=== PATIENT | female | born 1975 | race Caucasian/White ===

== ENCOUNTER → 2021-07-04 19:39 | Outpatient (CLI) | payer SELFPAY | PROVIDERS: Visit Provider Nurse Practitioner Family | DX: Z20.822 Contact with and (suspected) exposure to COVID-19 (principal) | CPT/HCPCS: C9803; U0003; U0005 ==

== ENCOUNTER 2023-02-10 19:52 | Emergency (ER) | payer BC, SELFPAY ==
[2023-02-10 20:15] VITALS: BP 141/68; PULSE 83; RESP 15; TEMP 36.7; O2SAT 96; BMI 27.6
--- NOTE | 2023-02-10 20:21 | XR_ITS ---
PROCEDURE INFORMATION: Exam: XR Pelvis Exam date and time: 02/10/2023 8:34 PM Age: 48 years old Clinical indication: Pelvic pain; Patient HX: Injured while lifting boxes. TECHNIQUE: Imaging protocol: Radiologic exam of the pelvis. Views: 1 or 2 view. COMPARISON: No relevant prior studies available. FINDINGS: Bones/joints: Unremarkable. No acute fracture. Soft tissues: Unremarkable. IMPRESSION: No acute findings.
--- NOTE | 2023-02-10 20:21 | CT_ITS ---
PROCEDURE INFORMATION: Exam: CT Thoracic Spine Without Contrast Exam date and time: 02/10/2023 8:36 PM Age: 48 years old Clinical indication: Pain in thoracic spine; Without myelpathy or radiculopathy; Additional info: Injury related to lifting TECHNIQUE: Imaging protocol: Computed tomography of the thoracic spine without contrast. Radiation optimization: All CT scans at this facility use at least one of these dose optimization techniques: automated exposure control; mA and/or kV adjustment per patient size (includes targeted exams where dose is matched to clinical indication); or iterative reconstruction. REPORTING DATA: Count of CT and Cardiac NM exams in prior 12 months: This patient has received 0 known CTs and 0 known cardiac nuclear medicine studies in the 12 months prior to the current study. 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 Vertebral bodies are maintained in height and alignment. Moderate loss of intervertebral disc space with degenerative changes at T10 through L2. Soft tissues: Unremarkable. IMPRESSION: 1. 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 2. Vertebral bodies are maintained in height and alignment. 3. Moderate loss of intervertebral disc space with degenerative changes at T10 through L2.
--- NOTE | 2023-02-10 20:21 | CT_ITS ---
PROCEDURE INFORMATION: Exam: CT Cervical Spine Without Contrast Exam date and time: 02/10/2023 8:33 PM Age: 48 years old Clinical indication: Neck pain; Additional info: Injury related to lifting TECHNIQUE: Imaging protocol: Computed tomography of the cervical spine without contrast. Radiation optimization: All CT scans at this facility use at least one of these dose optimization techniques: automated exposure control; mA and/or kV adjustment per patient size (includes targeted exams where dose is matched to clinical indication); or iterative reconstruction. REPORTING DATA: Count of CT and Cardiac NM exams in prior 12 months: This patient has received 0 known CTs and 0 known cardiac nuclear medicine studies in the 12 months prior to the current study. COMPARISON: No relevant prior studies available. FINDINGS: Bones/joints: No acute fracture. Normal alignment. No significant disc bulge or herniation. No severe spinal canal stenosis. No significant neural foraminal narrowing. Lungs: Lung apices are normal. Soft tissues: Unremarkable. IMPRESSION: No acute findings.
--- NOTE | 2023-02-10 20:21 | CT_ITS ---
PROCEDURE INFORMATION: Exam: CT Lumbar Spine Without Contrast Exam date and time: 02/10/2023 8:39 PM Age: 48 years old Clinical indication: Low back pain; Additional info: Injury related to lifting TECHNIQUE: Imaging protocol: Computed tomography of the lumbar spine without contrast. Radiation optimization: All CT scans at this facility use at least one of these dose optimization techniques: automated exposure control; mA and/or kV adjustment per patient size (includes targeted exams where dose is matched to clinical indication); or iterative reconstruction. REPORTING DATA: Count of CT and Cardiac NM exams in prior 12 months: This patient has received 0 known CTs and 0 known cardiac nuclear medicine studies in the 12 months prior to the current study. COMPARISON: CT THORACIC SPINE WO CON 02/10/2023 8:36 PM FINDINGS: Bones/joints: Moderate loss of intervertebral disc space with degenerative changes at L5-S1. Vertebral bodies are maintained in height and alignment. Soft tissues: Unremarkable. IMPRESSION: 1. Moderate loss of intervertebral disc space with degenerative changes at L5-S1. 2. Vertebral bodies are maintained in height and alignment.
--- NOTE | 2023-02-10 20:21 | XR_ITS ---
PROCEDURE INFORMATION: Exam: XR Left Shoulder Exam date and time: 02/10/2023 8:38 PM Age: 48 years old Clinical indication: Pain; Left; Patient HX: Strained shoulder while lifting. ; Additional info: Injury to shoulder TECHNIQUE: Imaging protocol: Radiologic exam of the left shoulder. Views: 2 or more views. COMPARISON: CR XR CHEST 2V 02/10/2023 8:36 PM FINDINGS: Bones/joints: Normal. Soft tissues: Normal. IMPRESSION: No acute findings.
--- NOTE | 2023-02-10 20:21 | XR_ITS ---
PROCEDURE INFORMATION: Exam: XR Chest Exam date and time: 02/10/2023 8:36 PM Age: 48 years old Clinical indication: Chest wall pain; Additional info: Injury while lifting TECHNIQUE: Imaging protocol: Radiologic exam of the chest. Views: 2 views. COMPARISON: CT CERVICAL SPINE WO CON 02/10/2023 8:33 PM FINDINGS: Lungs: Unremarkable. No consolidation. Pleural spaces: Unremarkable. No pleural effusion. No pneumothorax. Heart/Mediastinum: Unremarkable. No cardiomegaly. 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 IMPRESSION: No acute findings.
[2023-02-10 20:29] LABS: Basophils % 0.6 % (0.1-2.0); Eosinophils # 0.2 K/mm3 (0.0-0.4); Eosinophils % 2.6 % (0.1-12.0); Hematocrit 41.3 % (37.0-47.0); Hemoglobin 13.4 g/dL (12.2-16.2); Lymphocytes # 2.3 K/mm3 (0.7-4.5); Lymphocytes % 35.3 % (10-50); Mean Corpuscular HGB Conc 32.6 g/dL (31.8-35.4); Mean Corpuscular Hemoglobin 31.3 pg (27.0-31.2); Mean Corpuscular Volume 96.2 fl (81-99); Mean Platelet Volume 7.2 fl (7.4-10.4); Monocytes # 0.3 K/mm3 (0.1-1.0); Monocytes % 5.3 % (1.7-9.3); Neutrophils # 3.6 K/mm3 (1.8-7.8); Neutrophils % 56.2 % (37.0-80.0); Platelet Count 335 K/mm3 (142-424); Red Blood Count 4.29 M/mm3 (4.20-5.40); Red Cell Distribution Width 12.7 % (11.5-17.5); White Blood Count 6.5 K/mm3 (4.8-10.8)
[2023-02-10 20:35] LABS: Chloride 106 mmol/L (98-107); Sodium 141 mmol/L (136-145)
[2023-02-10 20:38] LABS: Alanine Aminotransferase 28 U/L (12-78); Albumin Level 4.2 g/dl (3.5-5.0); Albumin/Globulin Ratio 1.5 (1.1-1.8); Alkaline Phosphatase 69 U/L (38-126); Aspartate Amino Transferase 44 U/L (14-36); Bilirubin,Total 0.2 mg/dl (0.2-1.3); Blood Urea Nitrogen 11 mg/dl (7-17); Calcium 8.7 mg/dl (8.4-10.2); Carbon Dioxide 30 mmol/L (22.0-30.0); Creatinine Clearance Estimated 105 mL/min (50-200); Estimated Glomerular Filt Rate 89 ml/min (>60); GFR (African American) 108 ML/MIN (>60); Globulin 2.8 g/dL (1.3-3.2); Glucose 94 mg/dl (74-100)
[2023-02-10 20:44] LABS: C-Reactive Protein 11.6 mg/L (0-4)
[2023-02-10 21:24] LABS: Erythrocyte Sedimentation Rate 18 mm/hr (0-20)
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
[2023-02-10 21:48] VITALS: BP 131/86
[2023-02-10 22:00] VITALS: BP 124/70
[2023-02-10 22:29] VITALS: BP 135/86; PULSE 81; RESP 16; TEMP 36.6
== END 2023-02-10 22:42 | disposition home or self-care (01) ==
PROVIDERS: Emergency Provider Emergency Medicine; PCP Nurse Practitioner Family
DX: M65.832 Other synovitis and tenosynovitis, left forearm (principal); M54.12 Radiculopathy, cervical region; Z87.891 Personal history of nicotine dependence
CPT/HCPCS: 71046; 72125; 72128; 72131; 72170; 73030; 80053; 85025; 85651; 86140; 96361; 96374; 96375; 99284; 99285

== ENCOUNTER → 2023-03-09 16:38 | Outpatient (CLI) | payer BC, SELFPAY ==
--- NOTE | 2023-03-09 16:42 | MM_ITS ---
PROCEDURE INFORMATION: Exam: Bilateral Screening 3D Mammography Exam date and time: 03/09/2023 4:33 PM Age: 48 years old Clinical indication: Screening examination TECHNIQUE: Imaging protocol: Bilateral Screening tomosynthesis and 2D mammography including computer-aided detection (CAD) when performed. COMPARISON: No relevant prior studies available. FINDINGS: MAMMOGRAPHY: Breast composition: The breasts are heterogeneously dense, which may obscure small masses. Mass: None. Architectural distortion: None. Calcifications: No suspicious calcifications. Asymmetric density: None. Skin thickening: None. Axillary adenopathy: None. IMPRESSION: No mammographic evidence of malignancy. Annual screening is recommended unless otherwise clinically indicated. ASSESSMENT: BI-RADS Category 1: Negative
== END ==
PROVIDERS: PCP Nurse Practitioner Family; Visit Provider Nurse Practitioner Family
DX: Z12.31 Encounter for screening mammogram for malignant neoplasm of breast (principal)
CPT/HCPCS: 77063; 77067

== ENCOUNTER 2023-03-31 16:30 | Outpatient (RCR) | payer BC, SELFPAY ==
--- NOTE | 2023-03-08 17:14 | HMH.PTOPEV ---
PT Outpatient Evaluation Rehab PT Outpatient Evaluation Start: 03/08/23 15:59 Freq: Status: Active Protocol: Document 03/08/23 16:00 SUREKHAREGIS (Rec: 03/08/23 17:14 WALTER [id number]) E-signed By Padmini Bush, PT Outpatient Therapy Subjective History Subjective History Pt is a 48 y/o female who reports chronic L sided thoracolumbar pain with insidious worsening of symptoms 6 months ago. Pt denies trauma or injury. Pt reports she to went to the ED at [facility] on 02/10/23 due to arm pain but mentioned her back pain so she had multiple imaging performed of her spine . Pt had a thoracic CT scan with impression of biphasic curvature of the thoracolumbar spine with rotatory component and dominant curvature centered at T11-T12 with Soto angle of 20 degrees. Pt reports she has left-sided periscapular burning/stinging pain and central low back pain that refers to the left hip to the mid thigh-knee. Pt reports she has good and bad days with difficulty sleeping on bad days. Pt reports pain is worse with activities. Pt denies further comorbidities to report. SAMMY: 50% Chief Complaint Pain Symptom Type Ache,Throb,Dull,Burning Symptoms Relieved By Rest/Positioning,Heat Symptoms Aggravated By Standing Prior Functional Limitations None Current Functional Limitations Reaching,Lifting,Housework, Sleeping,Standing,Walking Symptom Description Constant but Variable Level of pain today (0-10) 7 Pain scale - at its best (0-10) 3 Pain scale - at its worst (0-10) 10 Cervical Eval Palpation Cervical Muscles L Thoracic Paraspinals Cervical/Thoracic Palpation Findings Tenderness Posture Head/C-Spine Posture Sitting Position Side Bent Right Flexibility Deficits Levaetor Scapulae Muscle Length (L) Moderate Tightness Pectoralis Major Muscle Length (L) Moderate Tightness Shoulder/Elbow Eval Shoulder Objective Measurements Shoulder MMT Left Lower Trapezius Strength Grade
== END 2023-03-31 17:45 | disposition home or self-care (01) ==
LOC: PT 16:30
PROVIDERS: PCP Nurse Practitioner Family; Visit Provider Nurse Practitioner Family
DX: M54.9 Dorsalgia, unspecified (principal)
CPT/HCPCS: 97010; 97014; 97110; 97163; G0283